=== PATIENT | female | born 1980 | race Caucasian/White ===

== ENCOUNTER 2016-05-23 10:06 | Emergency (ER) ==
[2016-05-23 10:26] VITALS: BP 110/80
--- NOTE | 2016-05-23 11:25 | PROVIDER DOCUMENTATION ---
HPI-EENT General - General Chief Complaint: Sore Throat Stated Complaint: SORE THROAT/SWOLLEN GLANDS Time Seen by Provider: 05/23/16 10:46 Source: family Allergies/Adverse Reactions: Patient Allergies Allergy/AdvReac Type Severity Reaction Status Date / Time diazepam [From Valium] Allergy Unknown Verified 05/23/16 10:42 diphenhydramine HCl * Allergy Unknown Verified 05/23/16 10:42 [From Benadryl] Home Medications: Home Medication List Medication Instructions Recorded Confirmed Last Taken Type Diphenhyramine/Al&mg Oh/Lido [Mbx 15 ml MT 4XDAY PRN PRN #1 bottle 05/23/16 Unknown Rx Solution] Penicillin V Potassium 500 mg PO BID #20 tablet 05/23/16 Unknown Rx - History of Present Illness-EENT General Nature of Presenting Problem: 35 y/o WF c/o sore throat x 12 days, worse in last 3 days. Pt states she has noted swollen lymph nodes and pain radiating from throat to L ear. Denies any cough, fever/chills, N/V/D/C. States taking excedrin routinely for pain. Review of Systems - Adult - REVIEW OF SYSTEMS - ADULT Constitutional: reports: no symptoms reported. denies: chills, fever Eyes: reports: no symptoms reported. denies: blurred vision, double vision Ears, Nose, Mouth & Throat: reports: see HPI, ear pain, throat pain. denies: sinus problem, nose pain Cardiovascular: reports: no symptoms reported. denies: chest pain, palpitations Respiratory: reports: no symptoms reported. denies: cough, shortness of breath Gastrointestinal: reports: no symptoms reported. denies: abdominal pain, nausea , vomiting Genitourinary: reports: no symptoms reported. denies: dysuria, frequency Musculoskeletal: reports: no symptoms reported. denies: joint pain, joint swelling Integumentary: reports: no symptoms reported. denies: nail changes, rash Neurological: reports: no symptoms reported. denies: headache/migraines, numbness, paresthesia Psychiatric: reports: no symptoms reported Endocrine: reports: no symptoms reported. denies: cold intolerance, heat intolerance Hematologic/Lymphatic: reports: no symptoms reported. denies: easy bruising, prolonged bleeding Allergic/Immunologic: reports: no symptoms reported All Other Systems: Reviewed and Negative Past History - Adult - PAST MEDICAL HISTORY-ADULT Review of Records: reports: Nursing Assessment Review, Medications Reviewed - SOCIAL HISTORY Smoking: cigarettes, less than 1 pack/day Provider spent 3-5 mins advising pt. on dangers of tobacco.: Discussed manners to quit use, and f/u contacts for add'l counseling. Physical Exam- EENT - Physical Exam EENT Initial Vital Signs Reviewed: Yes General Appearance: alert, mild distress Eye Exam: bilateral eye: normal inspection Ear Exam: bilateral ear: auricle normal, canal normal, TM normal Nasal Exam: normal inspection. negative: sinus tenderness Throat Exam: normal mouth inspection, tonsillar exudate (R), tonsillar swelling . negative: pharynx normal (erythema) Neck: supple, normal inspection, lymphadenopathy (cervical) Respiratory: lungs clear, normal breath sounds. negative: crackles, rales, rhonchi, stridor, wheezing Cardiovascular: regular rate, rhythm. negative: bradycardia, tachycardia Lymphatic: cervical node tenderness Back Exam: normal inspection Extremity: normal gait Integumentary: normal color, normal turgor, warm/dry. negative: rash Neurologic: negative: aphasia Psych/Mental Status: normal mood/affect, normal thought content, normal thought process, oriented x 3 Progress - PLAN OF CARE/RESULTS Progress/Plan/Lab Results: Orders Category Date Time Status DIRECT STREP Stat Lab 05/23/16 10:36 Completed Vital Signs Temp Pulse Resp BP Pulse Ox 05/23/16 10:22 98.1 F 93 H 18 110/80 100 diazepam [From Valium] Allergy (Verified 05/23/16 10:42) Unknown muscle spams diphenhydramine HCl * [From Benadryl] Allergy (Verified 05/23/16 10:42) Unknown muscles Diphenhyramine/Al&mg Oh/Lido [Mbx Solution] 15 ml MT 4XDAY PRN PRN #1 bottle 09/03 Penicillin V Potassium 500 mg PO BID #20 tablet 05/23/16 Strep -. Discussed results and medication use with pt, including return precautions. Departure - Departure Time of Disposition Order: 11:24 DIAGNOSIS: Pharyngitis Qualifiers: Pharyngitis/tonsillitis etiology: unspecified etiology Qualified Code(s): J02.9 - Acute pharyngitis, unspecified Disposition: HOME 01 Certified Medical Emergency: Emergent Condition: Stable Additional Instructions: Take medications as directed. Tylenol or motrin as needed for pain. Return if symptoms get worse. ED Follow Up Instructions: You have been treated by a care provider in the Emergency Department. These instructions are being provided to you so you can have an understanding of how to care for yourself upon discharge. Upon discharge from the Emergency Department, you are responsible for making arrangements for follow-up care by a physician of your choice. Take all prescribed medications as directed. Return to the Emergency Department immediately for any new or worsening symptoms. You may call the Physician Referral phone number at [phone] to obtain a list of Physicians who are taking new patients. Prescriptions: Diphenhyramine/Al&mg Oh/Lido [Mbx Solution] 15 ml MT 4XDAY PRN PRN #1 bottle PRN Reason: Pain Penicillin V Potassium 500 mg PO BID #20 tablet Referrals: None,PCP [Primary Care Provider] - Instructions: Pharyngitis, [id number]-br-Ndeh Attestation - Physician/ SAMIA Attestation Patient care was provided by Advanced Practice Provider:: Yes Advanced Practice Provider:: Tresa Walter Advanced Practice Provider documentation review:: The Mid-level provider documentation, treatment plan and medical decision making was reviewed by the physician who agrees with all treatment and medical decision making by the P.
== END 2016-05-23 11:58 | disposition home or self-care (01) ==
LOC: ED 10:06
DX: J02.9 Acute pharyngitis, unspecified (principal); R59.0 Localized enlarged lymph nodes; H92.02 Otalgia, left ear; R22.1 Localized swelling, mass and lump, neck; F17.210 Nicotine dependence, cigarettes, uncomplicated; Z71.6 Tobacco abuse counseling
CPT/HCPCS: 87081; 87430; 99283